=== PATIENT | male | born 1940 | race Caucasian/White ===

== ENCOUNTER 2019-02-17 21:43 | Emergency (ER) | payer OTHER, MEDICAID ==
[~2019-02-17] VITALS: Ht 154.9 cm; Wt 49.9 kg
[2019-02-17 21:50] VITALS: BP_SYST 152
--- NOTE | 2019-02-17 21:50 | NUR ---
Pt JULIA HOLGUIN from [facility], placed to ER hallway 1. Pt here for G-tube replacement, s/p pulling out tube at unknown time today. F/C placed to stoma per facility. 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
[2019-02-17] MEDS ORDERED: GASTROGRAFIN 120 ML ONE (22:30)
--- NOTE | 2019-02-17 22:50 | NUR ---
Pt placed to ER bed 04. Report given to MAREN Franks.
--- NOTE | 2019-02-17 23:05 | NUR ---
Dr. Uribe at bedside. 20 Fr. G-tube placed and balloon inflated with 20 mL NS. Stoma cleaned with NS and sterile dsg applied to site, G-tube secured in place. Radiology notified for X-ray with gastrografin for placement confirmation.
--- NOTE | 2019-02-17 23:10 | NUR ---
Pt BIBA to ED from [facility] C/O G-tube misplacement. According to EMS, patient pulled out his G-tube earlier today. The patient has a Roy catheter in place at G-tube site which is patent. Patient is here for replacement. No other injuries and or complaints noted VSS no s/s of acute distress Resting on gurney with rails up
--- NOTE | 2019-02-17 23:20 | NUR ---
Portable X Ray bedside for G Tube Confirmation, well toelrated
--- NOTE | 2019-02-18 00:30 | NUR ---
VSS no s/s of acute distress Resting on gurney rails up
[2019-02-18 01:55] VITALS: BP_SYST 142
--- NOTE | 2019-02-18 01:55 | NUR ---
Patient given written and verbal discharge instructions and verbalizes understanding. ER MD discussed with patient the results and treatment provided. Patient in stable condition. ID arm band removed. Patient educated on pain management and to follow up with PMD. Pain Scale 0/10 Opportunity for questions provided and answered. Care BLS transport at bedside for Pt transport back to [facility]
== END 2019-02-18 01:55 | disposition home or self-care (01) ==
LOC: SED 21:43
DX: K94.29 Other complications of gastrostomy (principal); G80.9 Cerebral palsy, unspecified; E11.9 Type 2 diabetes mellitus without complications
CPT/HCPCS: 43762; 74240; 99284; Q9963